=== PATIENT | male | born 1955 | race Caucasian/White ===

== ENCOUNTER 2020-03-12 18:15 | Emergency (ER) | payer MEDICARE ==
[~2020-03-12] VITALS: Ht 182.9 cm; Wt 79.5 kg
[2020-03-12] MEDS ORDERED: normal saline 1000ml 1,000 ML IV ONE (18:55)
[2020-03-12 19:02] LABS: BASOPHILS % (AUTO) 0.1 % (0-1); EOSINOPHILS # (AUTO) 0.1 X10'3 (0-0.9); EOSINOPHILS % (AUTO) 0.7 % (0-6); HEMATOCRIT 29.5 % (42.0-52.0); HEMOGLOBIN 9.7 g/dl (14.0-17.9); LYMPHOCYTES # (AUTO) 0.6 X10'3 (1.1-4.8); LYMPHOCYTES % (AUTO) 6.4 % (21-51); MEAN CORPUSCULAR HEMOGLOBIN 29.3 PG (27.0-31.0); MEAN CORPUSCULAR VOLUME 88.6 FL (78-98); MEAN PLATELET VOLUME 7.7 FL (7.4-10.4); MONOCYTES # (AUTO) 2.1 X10'3 (0-0.9); MONOCYTES % (AUTO) 21.5 % (2-12); NEUTROPHILS # (AUTO) 6.8 X10'3 (1.8-7.7); NEUTROPHILS % (AUTO) 71.3 % (42-75); PLATELET COUNT 195 X10'3 (140-440); RED BLOOD COUNT 3.33 X10'6 (4.70-6.10); RED CELL DISTRIBUTION WIDTH 14.8 % (11.5-14.5); WHITE BLOOD COUNT 9.6 X10'3 (4.5-11.0)
[2020-03-12 19:12] LABS: ALANINE AMINOTRANSFERASE 52 U/L (12-78); ALBUMIN 1.8 G/DL (3.4-5.0); ALBUMIN/GLOBULIN RATIO 0.4 (1.1-1.5); ALKALINE PHOSPHATASE 339 IU/L (46-116); ANION GAP 8 (8-16); ASPARTATE AMINO TRANSFERASE 24 U/L (10-37); BILIRUBIN,TOTAL 1.1 MG/DL (0.1-1.0); BLOOD UREA NITROGEN 11 MG/DL (7-18); BUN/CREATININE RATIO 12.6 (5.4-32.0); CALCIUM 8.2 MG/DL (8.5-10.1); CHLORIDE 103 MMOL/L (99-107); CREATININE 0.87 MG/DL (0.60-1.10); GLUCOSE 136 MG/DL (70-104); POTASSIUM 3.7 MMOL/L (3.5-5.1); SODIUM 136 MMOL/L (135-145); TOTAL CARBON DIOXIDE 24.6 MMOL/L (24-32); TOTAL PROTEIN 6.1 G/DL (6.4-8.2); eGFR 88 ML/MIN
[2020-03-12] MEDS ORDERED: NO HOME MEDS (19:12)
[2020-03-12 19:22] LABS: COLOR,URINE AMBER (Yellow); GLUCOSE, URINE 100 mg/dl (Neg); KETONES,URINE TRACE mg/dl (Neg); LEUKOCYTE ESTERASE ,URINE NEGATIVE (Neg); NITRITES, URINE NEGATIVE (Neg); OCCULT BLOOD,URINE NEGATIVE (Neg); PROTEIN,URINE 30 mg/dl (Neg); UROBILINOGEN,URINE >=8.0 E.U/dL (0.2-1.0)
[2020-03-12 19:26] LABS: UA COLLECTION TYPE STRAIGHT CATH
[2020-03-12 19:27] LABS: CLARITY,URINE SLIGHTLY CLOUDY (Clear)
[2020-03-12 19:29] LABS: MUCUS STRANDS MANY /LPF (Neg); SQUAMOUS EPITHELIAL CELL,UR FEW /LPF (FEW); TRANSITIONAL EPI CELLS,URINE FEW /HPF
[2020-03-12 19:32] LABS: BACTERIA,URINE NONE SEEN /HPF (Neg); RBC,URINE 0-2 /HPF (0-2); WBC,URINE 0-4 /HPF (0-4)
[2020-03-12 20:23] LABS: TOTAL CELLS COUNTED 100
[2020-03-12 20:25] LABS: LARGE PLATELETS FEW; PLATELET ESTIMATE NORMAL
[2020-03-12 20:46] VITALS: BP 112/54
== END 2020-03-12 21:05 | disposition home or self-care (01) ==
LOC: ER 18:16
DX: R53.1 Weakness (principal); R50.9 Fever, unspecified; R05 Cough
CPT/HCPCS: 36415; 71045; 80053; 81001; 83605; 85025; 87040; 87502; 87503; 99284; J7030; U0003